=== PATIENT | female | born 1960 | race Caucasian/White ===

== ENCOUNTER 2017-12-12 15:29 | Outpatient (CLI) | payer OTHER | END 2017-12-12 15:30 | disposition home or self-care (01) | LOC: BICRAD 15:29 | PROVIDERS: ATTEND Specialist | DX: M25.551 Pain in right hip (principal); M47.16 Other spondylosis with myelopathy, lumbar region | CPT/HCPCS: 72100 ==

== ENCOUNTER 2018-03-21 12:03 | Outpatient (CLI) | payer OTHER ==
--- NOTE | 2018-03-21 14:42 | MRI ---
MRI LUMBAR SPINE WITHOUT CONTRAST: Date: 03/21/18 HISTORY: Lumbar radiculopathy. Radicular pain. COMPARISON: None. TECHNIQUE: MRI lumbar spine is performed without intravenous Gadolinium administration. Multisequential, multipl tramaine imaging is performed. FINDINGS: Appropriate T1 marrow signal intensity of the lumbar vertebra. No evidence of vertebral body fracture . There is preservation of vertebral height. There does appear to be a combination of Type I and Type II end plate changes at L3-L4, L4-L5, and to a lesser extent L5-S1. Symmetric signal intensity of the psoas muscles. Appropriate signal intensity of the visualized solid organs. Conus medullaris terminates at the mid L1 level. T12-L1: Mild loss of disc space height. No significant central canal stenosis. Foramina are patent. L1-L2: Mild loss of disc space height. No significant central canal stenosis. Foramina are patent. L2-L3: Desiccation with mild loss of disc space height. There are left and right paracentral disc bu lges without significant central canal stenosis. Bilaterally, neural foramina are patent. L3-L4: Desiccation with moderate loss of disc space height. Generalized disc bulge, ligamentum flavu m thickening, and facet hypertrophy do not cause any significant central canal stenosis. There is enc roachment upon both subarticular zones, left greater than right. Partial obscuration of traversing le ft L4 nerve root. No significant obscuration of the traversing right L4 nerve root. Mild right and mo derate left foraminal narrowing. L4-L5: Desiccation with moderate loss of disc space height. Generalized disc bulge does not cause an y significant stenosis of the thecal sac. Disc material encroaches upon both subarticular zones witho ut significant mass effect or obscuration, or either traversing L5 nerve root. Mild to moderate right and mild left neural foraminal narrowing. L5-S1: Desiccation with moderate loss of disc space height. There is a generalized disc bulge with a small left subarticular component. There is mild posterior displacement of the traversing left S1 ne rve root with mild deformity. Disc material abuts but does not obscure or displace the traversing rig ht S1 nerve root. No significant stenosis of the thecal sac. Moderate right and left foraminal narrow ing. IMPRESSION: Degenerative changes of the lumbar spine as above. POS: [facility]
== END 2018-03-21 12:04 | disposition home or self-care (01) ==
LOC: BICMRI 12:03
PROVIDERS: ATTEND Nurse Practitioner Family
DX: M47.26 Other spondylosis with radiculopathy, lumbar region (principal)
CPT/HCPCS: 72148

== ENCOUNTER 2019-06-10 10:03 | Outpatient (CLI) | payer OTHER ==
--- NOTE | 2019-06-10 11:45 | RAD ---
RIGHT KNEE 4 VIEWS: Date: 06/10/2019 HISTORY: Collateral ligamental strain, right knee pain. FINDINGS/IP No fracture, dislocation, or bony destruction is identified. POS: [facility]
== END 2019-06-10 10:04 | disposition home or self-care (01) ==
LOC: BICRAD 10:03
PROVIDERS: ATTEND Specialist
DX: M22.3X1 Other derangements of patella, right knee (principal)

== ENCOUNTER 2019-06-19 08:36 | Outpatient (CLI) | payer OTHER ==
--- NOTE | 2019-06-19 14:22 | MRI ---
MRI RIGHT KNEE: DATE: 06/19/2019. PROVIDED CLINICAL HISTORY: Right knee pain. FINDINGS: The anterior cruciate ligament, posterior cruciate ligament, medial collateral ligament, and lateral collateral ligamentous complex demonstrate an intact MR appearance, as does the extensor mechanism. The medial and lateral menisci demonstrate no evidence for a tear. No focal articular cartilage defect is apparent. There is articular cartilage thinning involving the patellar articular cartilage with surface irregularity reflective of low-grade fissuring. There is a physiologic amount of fluid within the knee joint. No focal concerning regional marrow or muscular signal abnormality is apparent. Fluid signal intensity about the proximal soleus muscle ma y reflect low-grade muscular strain. IMPRESSION: 1. Possible low-grade muscular strain involving proximal soleus muscle. 2. No evidence for internal derangement. 3. Patellar chondrosis. POS: OFF
== END 2019-06-19 08:37 | disposition home or self-care (01) ==
LOC: MRI 08:36
PROVIDERS: ATTEND Specialist
DX: M23.91 Unspecified internal derangement of right knee (principal)

== ENCOUNTER 2019-07-02 08:05 | Outpatient (CLI) | payer OTHER ==
--- NOTE | 2019-07-02 08:27 | RAD ---
EXAM: 3 views of the left foot HISTORY: Foot pain COMPARISON: None FINDINGS: 3 views of the left foot shows no evidence of acute fracture or dislocation. No soft tissue swelling is seen. No degenerative changes are present. IMPRESSION: No evidence of acute osseous abnormality.
== END 2019-07-02 08:06 | disposition home or self-care (01) ==
LOC: RAD 08:05
PROVIDERS: ATTEND Specialist
DX: M77.42 Metatarsalgia, left foot (principal)

== ENCOUNTER 2019-07-09 13:58 | Outpatient (CLI) | payer OTHER ==
--- NOTE | 2019-07-09 14:55 | BD ---
EXAM: DEXA bone density examination HISTORY: Osteopenia COMPARISON: None FINDINGS: L1--bone mineral density 0.874 g/sq cm; T score -1.1. Z score 0.2 L2--bone mineral density 0.975 g/sq cm; T score -0.5; Z score 1.0 L3--bone mineral density 1.141 g/sq cm; T score 0.5; Z score 2.0 L4--bone mineral density 1.147 g/sq cm; T score 0.8, Z score 2.3 Total L1-L4--bone mineral density 1.036 g/sq cm; T score -0.1, Z score 1.4 Left femoral neck--bone mineral density0.772; T score -0.7, Z score 0.6 Total proximal left femur--bone mineral density 0.910; T score -0.3, Z score 0.7 IMPRESSION: Based on the WHO criteria, the patient's bone mineral density is consideredNormal. The p atient is at low risk for fracture.
== END 2019-07-09 13:59 | disposition home or self-care (01) ==
LOC: BICMAMMO 13:58
PROVIDERS: ATTEND Specialist
DX: M85.80 Other specified disorders of bone density and structure, unspecified site (principal)
CPT/HCPCS: 77080